=== PATIENT | male | born 1945 | race African-American/Black ===

== ENCOUNTER 2017-07-29 10:32 | Inpatient (IN) ==
[2017-07-29 12:04] LABS: Basophils % 0.3 % (0.0-0.8); Eosinophils % 0.1 % (0.00-10.9); Hematocrit 36.7 VOL% (42.0-52.0); Hemoglobin 12.9 GM/DL (14.0-18.0); Immature Granulocytes % 0.4 %; Immature Granulocytes Absolute 0.03 #; Lymphocytes # 0.8 10*3/uL (1.4-4.0); Mean Corpuscular HGB Conc 35.1 GM/DL (32-36); Mean Corpuscular Hemoglobin 36 PG (27-34); Mean Corpuscular Volume 102.8 FL (87-102); Mean Platelet Volume 9.7 FL (9.6-12.0); Monocytes # 0.5 10*3/uL (0.11-0.8); Monocytes % 6.5 % (1.7-12.7); Neutrophils # 6.4 10*3/uL (1.4-7.4); Neutrophils % 82.7 % (38.7-73.9); Platelet Count 160 T/CUMM (130-400); Red Blood Count 3.57 MC/CUMM (3.8-5.5); White Blood Count 7.7 T/CUMM (4-12)
[2017-07-29 12:17] LABS: INR 0.9; Partial Thromboplastin Time 25.1 SECS (0-40)
[2017-07-29 12:21] LABS: Apearance,Urine CLEAR (Clear); Bilirubin,Urine Negative (Negative); Blood, Urine Small mg/dL (Negative); Glucose,Urine (UA) Negative (Negative); Ketones,Urine 80 mg/dL (Negative); Mucus,Urine Occasional /LPF (Occasional); Nitrite,Urine Negative (Negative); Protein,Urine 30 MG/DL; RBC,Urine <1 /HPF (0-4); Squamous Epithelial Cell,Urine Occasional /HPF (0-10); Urine Color Yellow (Yellow); Urine Specific Gravity 1.019 (1.001-1.035); WBC,Urine <1 /HPF (0-6)
[2017-07-29 12:25] LABS: Barbiturates Screen,Urine Negative (Negative); Benzodiazepines Screen,Urine Negative (Negative); Cannabinoid Screen,Urine Negative (Negative); Opiate Screen,Urine Negative (Negative); Phencyclidine Screen,Urine Negative (Negative)
[2017-07-29 12:28] LABS: Alanine Aminotransferase 75 U/L (16-61); Albumin 4.1 G/DL (3.4-5.0); Alkaline Phosphatase 96 U/L (45-117); Aspartate Amino Transferase 239 U/L (0-37); Blood Urea Nitrogen 10 MG/DL (7-18); Calcium 9.1 MG/DL (8.5-10.1); Glucose 86 MG/DL (74-106); Osmolality,Calculated 274.5 MOS/KG (273-304); Potassium 2.8 MMOL/L (3.5-5.1); Sodium 139 MMOL/L (136-145); Total Protein 7.7 G/DL (6.4-8.3); Troponin I Only < 0.015 NG/ML (0.00-0.045)
[2017-07-29] MEDS ORDERED: POTASSIUM BICARB EFFERVESCENT 25 MEQ TABLET PO ONE ×2 (12:36→12:42)
[2017-07-29] MEDS ORDERED: ACETAMINOPHEN 325 MG TABLET PO PRN (15:11)
[2017-07-29] MEDS ORDERED: ONDANSETRON 4 MG/2 ML VIAL IV PRN (15:11)
[2017-07-29] MEDS ORDERED: POTASSIUM CHLORIDE 20 MEQ TABLET PO PRN (15:21)
[2017-07-29] MEDS ORDERED: LORazepam 2 MG/1 ML VIAL IV PRN (15:28)
[2017-07-29] MEDS ORDERED: THIAMINE INJ 100 MG, FOLIC ACID INJ 1 MG, MULTIVITAMIN INJ 10 ML in SODIUM CHLORIDE 0.9... IV SCH (15:30)
[2017-07-29] MEDS: NICOTINE 14 MG/24 HR PATCH TRANSDERM SCH (17:54)
[2017-07-29] MEDS: ASPIRIN EC 325 MG TABLET PO SCH (17:54)
[2017-07-29] MEDS ORDERED: hydrALAZINE 20 MG/1 ML VIAL IV PRN (18:33)
[2017-07-29] MEDS: 1: THIAMINE INJ 100 MG, MULTIVITAMIN INJ 10 ML, FOLIC ACID INJ 1 MG in SODIUM CHLORIDE 0 IV SCH (18:53)
[2017-07-29] MEDS: chlordiazePOXIDE 10 MG CAPSULE PO SCH (20:31)
[2017-07-29] MEDS ORDERED: ENOXAPARIN 40 MG/0.4 ML SYRINGE SUBCUT SCH (21:00)
[2017-07-29] MEDS ORDERED: ATORVASTATIN 40 MG TABLET PO SCH (21:00)
[2017-07-30] MEDS: 1: THIAMINE INJ 100 MG, MULTIVITAMIN INJ 10 ML, FOLIC ACID INJ 1 MG in SODIUM CHLORIDE 0 IV SCH (04:22)
[2017-07-30 06:08] LABS: Risk Ratio 3.01; VLDL CHOLESTEROL 17.8 MG/DL
[2017-07-30 06:09] LABS: Calcium 8.3 MG/DL (8.5-10.1); Osmolality,Calculated 278.3 MOS/KG (273-304); Potassium 2.9 MMOL/L (3.5-5.1)
[2017-07-30] MEDS ORDERED: POTASSIUM CHLORIDE 10 MEQ TABLET PO ONE (07:51)
[2017-07-30] MEDS: NICOTINE 14 MG/24 HR PATCH TRANSDERM SCH (08:25)
[2017-07-30] MEDS: ASPIRIN EC 325 MG TABLET PO SCH (08:25)
[2017-07-30] MEDS: chlordiazePOXIDE 10 MG CAPSULE PO SCH ×2 (08:27→15:09)
[2017-07-30] MEDS ORDERED: amLODIPine 5 MG TABLET PO SCH ×2 (09:00)
[2017-07-30] MEDS ORDERED: MAGNESIUM OXIDE 400 MG TABLET PO ONE (10:14)
[2017-07-30] MEDS ORDERED: MAGNESIUM SULF RIDER 2 GM in PREMIX 1 EACH IV ONE (10:14)
[2017-07-30 11:51] VITALS: BP 129/87
[2017-07-30] MEDS ORDERED: POTASSIUM CHLORIDE 20 MEQ TABLET PO ONE (14:00)
[2017-07-30] MEDS ORDERED: MAGNESIUM OXIDE 400 MG TABLET PO SCH (21:00)
== END 2017-07-30 15:20 | disposition home or self-care (01) | DRG 641 ==
LOC: N.ED 10:32 → N.EDINP 13:32 → N.4E 17:45
PROVIDERS: ADMIT Family Medicine; ATTEND Family Medicine

== ENCOUNTER 2018-02-27 10:41 | Inpatient (IN) ==
[2018-02-27] MEDS ORDERED: SODIUM CHLORIDE 0.9% 1,000 ML IV STA ×2 (10:58→13:12)
[2018-02-27] MEDS ORDERED: ONDANSETRON 4 MG/2 ML VIAL IV STA (10:58)
[2018-02-27 12:39] LABS: Basophils % 0.1 % (0.0-0.8); Eosinophils % 0.1 % (0.00-10.9); Hematocrit 35.6 VOL% (42.0-52.0); Hemoglobin 12.1 GM/DL (14.0-18.0); Immature Granulocytes % 0.5 %; Immature Granulocytes Absolute 0.06 #; Lymphocytes # 0.2 10*3/uL (1.4-4.0); Lymphocytes % 1.7 % (21.2-54.2); Mean Corpuscular Hemoglobin 34 PG (27-34); Mean Corpuscular Volume 100.6 FL (87-102); Mean Platelet Volume 9.3 FL (9.6-12.0); Monocytes # 0.9 10*3/uL (0.11-0.8); Monocytes % 7.6 % (1.7-12.7); Neutrophils # 11.2 10*3/uL (1.4-7.4); Platelet Count 214 T/CUMM (130-400); Red Blood Count 3.54 MC/CUMM (3.8-5.5); Red Cell Distribution Width 12.9 % (9.3-17.3); White Blood Count 12.4 T/CUMM (4-12)
[2018-02-27 13:03] LABS: Alanine Aminotransferase 29 U/L (16-61); Albumin 3.4 G/DL (3.4-5.0); Alkaline Phosphatase 126 U/L (45-117); Aspartate Amino Transferase 72 U/L (0-37); Blood Urea Nitrogen 20 MG/DL (7-18); Calcium 7.5 MG/DL (8.5-10.1); Glucose 145 MG/DL (74-106); Potassium 3.2 MMOL/L (3.5-5.1); Sodium 136 MMOL/L (136-145); Total Protein 6.5 G/DL (6.4-8.3)
[2018-02-27 13:05] LABS: Lactic Acid 4.9 MMOL/L (0.4-2.0)
[2018-02-27] MEDS ORDERED: NICOTINE 21 MG/24 HR PATCH TRANSDERM PRN (13:27)
[2018-02-27] MEDS ORDERED: MORPHINE 4 MG/1 ML VIAL IV PRN (13:27)
[2018-02-27] MEDS ORDERED: ONDANSETRON 4 MG/2 ML VIAL IV PRN (13:27)
[2018-02-27] MEDS ORDERED: ACETAMINOPHEN 500 MG TABLET PO PRN (13:27)
[2018-02-27] MEDS ORDERED: GLUCAGON 1 MG VIAL IM PRN (13:34)
[2018-02-27 13:36] LABS: Lymphocytes 2 % (20-55); Platelet Estimate Normal; Segmented Neutrophils 92 % (50-85); Total Cells Counted 100
[2018-02-27 13:37] LABS: Anisocytosis 1+; Macrocytosis 1+
[2018-02-27] MEDS ORDERED: LORazepam 2 MG/1 ML VIAL IV PRN (13:37)
[2018-02-27 13:38] LABS: Ovalocytes Few; Poikilocytosis 1+
[2018-02-27 13:39] LABS: Tear Drop Cells Few
[2018-02-27 14:17] LABS: ABG Base Excess -4.8 MMOL/L (-2.5-2.5); ABG HCO3 20.5 MMOL/L (20-26); ABG Oxygen Saturation 97.1 % (95-100); ABG PCO2 28.7 MM HG (35-48); ABG PH 7.418 (7.35-7.45); ABG PO2 95.5 MM HG (80-95); ABG TCO2 16.3 MMOL/L (23-27)
[2018-02-27 15:22] LABS: Apearance,Urine CLEAR (Clear); Bilirubin,Urine Negative (Negative); Blood, Urine Moderate mg/dL (Negative); Glucose,Urine (UA) 50 mg/dL (Negative); Hyaline Casts,Urine 16 /LPF (0-3); Ketones,Urine 80 mg/dL (Negative); Nitrite,Urine Negative (Negative); Protein,Urine 30 MG/DL; RBC,Urine 1 /HPF (0-4); Squamous Epithelial Cell,Urine Occasional /HPF (0-10); Urine Color Yellow (Yellow); Urine Specific Gravity 1.011 (1.001-1.035); WBC,Urine 2 /HPF (0-6)
[2018-02-27] MEDS: SODIUM CHLORIDE 0.9% 1,000 ML IV SCH ×3 (15:51→20:51)
[2018-02-27 15:58] LABS: PT Patient Result 10.7 SECS
[2018-02-27] MEDS: POTASSIUM CHLORIDE RIDER 10 MEQ in PREMIX 1 EACH IV SCH ×4 (15:59→19:07)
[2018-02-27] MEDS: CLORAZEPATE 7.5 MG TABLET PO SCH ×2 (15:59→23:20)
[2018-02-27] MEDS: MEROPENEM 500 MG in SODIUM CHLORIDE 0.9% 100 ML IV SCH (16:02)
[2018-02-27 16:22] LABS: Lactic Acid 2.3 MMOL/L (0.4-2.0)
[2018-02-27] MEDS ORDERED: THIAMINE INJ 100 MG, FOLIC ACID INJ 1 MG, MULTIVITAMIN INJ 10 ML in SODIUM CHLORIDE 0.9... IV SCH (17:00)
[2018-02-27 17:47] LABS: Barbiturates Screen,Urine Negative (Negative); Benzodiazepines Screen,Urine Negative (Negative); Cannabinoid Screen,Urine Negative (Negative); Opiate Screen,Urine Negative (Negative); Phencyclidine Screen,Urine Negative (Negative)
[2018-02-27] MEDS: INSULIN LISPRO 100 UNIT/ML SUBCUT SCH ×2 (18:05→23:43)
[2018-02-27 18:37] LABS: Apearance,Urine Slightly Hazy (Clear); Bilirubin,Urine Negative (Negative); Blood, Urine Large mg/dL (Negative); Glucose,Urine (UA) Negative (Negative); Hyaline Casts,Urine 16 /LPF (0-3); Ketones,Urine 80 mg/dL (Negative); Mucus,Urine Occasional /LPF (Occasional); Nitrite,Urine Negative (Negative); Protein,Urine 30 MG/DL; RBC,Urine 2 /HPF (0-4); Squamous Epithelial Cell,Urine Occasional /HPF (0-10); Urine Color Yellow (Yellow); Urine Urobilinogen < 2.0 EU/DL (0.2-1.0); WBC,Urine 1 /HPF (0-6)
[2018-02-27] MEDS: ATORVASTATIN 40 MG TABLET PO SCH (21:49)
[2018-02-27] MEDS: MAGNESIUM OXIDE 400 MG TABLET PO SCH (21:49)
[2018-02-27] MEDS: ENOXAPARIN 40 MG/0.4 ML SYRINGE SUBCUT SCH (21:49)
[2018-02-27] MEDS: DEXTROSE 50% 25 GM/50 ML VIAL IV PRN (23:39)
[2018-02-28] MEDS: MEROPENEM 500 MG in SODIUM CHLORIDE 0.9% 100 ML IV SCH ×2 (03:43→15:13)
[2018-02-28 05:13] LABS: Basophils % 0.1 % (0.0-0.8); Eosinophils % 0.1 % (0.00-10.9); Hematocrit 33.9 VOL% (42.0-52.0); Hemoglobin 11.5 GM/DL (14.0-18.0); Immature Granulocytes % 0.3 %; Immature Granulocytes Absolute 0.02 #; Lymphocytes # 0.4 10*3/uL (1.4-4.0); Lymphocytes % 5.4 % (21.2-54.2); Mean Corpuscular HGB Conc 33.9 GM/DL (32-36); Mean Corpuscular Hemoglobin 34 PG (27-34); Mean Corpuscular Volume 101.5 FL (87-102); Mean Platelet Volume 9.2 FL (9.6-12.0); Monocytes # 0.5 10*3/uL (0.11-0.8); Monocytes % 6.3 % (1.7-12.7); Neutrophils # 6.7 10*3/uL (1.4-7.4); Neutrophils % 87.8 % (38.7-73.9); Platelet Count 125 T/CUMM (130-400); Red Blood Count 3.34 MC/CUMM (3.8-5.5); White Blood Count 7.6 T/CUMM (4-12)
[2018-02-28 05:32] LABS: Albumin 2.8 G/DL (3.4-5.0); Bilirubin,Total 1.5 MG/DL (0.2-1.0); Calcium 7.1 MG/DL (8.5-10.1); Osmolality,Calculated 273.8 MOS/KG (273-304); Total Protein 5.8 G/DL (6.4-8.3)
[2018-02-28] MEDS: DEXTROSE 50% 25 GM/50 ML VIAL IV PRN (05:45)
[2018-02-28] MEDS: INSULIN LISPRO 100 UNIT/ML SUBCUT SCH ×4 (06:00→23:04)
[2018-02-28] MEDS: CLORAZEPATE 7.5 MG TABLET PO SCH ×3 (06:01→23:10)
[2018-02-28] MEDS ORDERED: MAGNESIUM SULF RIDER 2 GM in PREMIX 1 EACH IV PRN (08:41)
[2018-02-28] MEDS ORDERED: MAGNESIUM SULF RIDER 4 GM in PREMIX 1 EACH IV PRN (08:41)
[2018-02-28] MEDS: MAGNESIUM OXIDE 400 MG TABLET PO SCH ×2 (08:44→20:59)
[2018-02-28] MEDS: POTASSIUM CHLORIDE 20 MEQ TABLET PO SCH (08:44)
[2018-02-28] MEDS: ASPIRIN EC 81 MG TABLET PO SCH (08:45)
[2018-02-28] MEDS: amLODIPine 5 MG TABLET PO SCH (08:45)
[2018-02-28] MEDS: SODIUM CHLORIDE 0.9% 1,000 ML IV SCH (08:55)
[2018-02-28] MEDS ORDERED: POTASSIUM CHLORIDE 20 MEQ TABLET PO ONE (13:30)
[2018-02-28] MEDS: 1: SODIUM CHLORIDE 0.9% 1,000 ML 2: THIAMINE INJ 100 MG, FOLIC ACID INJ 1 MG, MULTIVITA IV SCH ×3 (17:13→22:11)
[2018-02-28] MEDS: POTASSIUM CHLORIDE RIDER 10 MEQ in PREMIX 1 EACH IV PRN ×3 (20:59→23:11)
[2018-02-28] MEDS: ATORVASTATIN 40 MG TABLET PO SCH (20:59)
[2018-02-28] MEDS: ENOXAPARIN 40 MG/0.4 ML SYRINGE SUBCUT SCH (20:59)
[2018-03-01] MEDS: POTASSIUM CHLORIDE RIDER 10 MEQ in PREMIX 1 EACH IV PRN ×2 (00:15→01:17)
[2018-03-01] MEDS: MEROPENEM 500 MG in SODIUM CHLORIDE 0.9% 100 ML IV SCH (03:36)
[2018-03-01] MEDS: 1: SODIUM CHLORIDE 0.9% 1,000 ML 2: THIAMINE INJ 100 MG, FOLIC ACID INJ 1 MG, MULTIVITA IV SCH ×2 (04:03→04:04)
[2018-03-01 04:49] LABS: Eosinophils % 0.5 % (0.00-10.9); Hematocrit 30.4 VOL% (42.0-52.0); Hemoglobin 10.5 GM/DL (14.0-18.0); Immature Granulocytes % 0.2 %; Immature Granulocytes Absolute 0.01 #; Lymphocytes # 0.5 10*3/uL (1.4-4.0); Lymphocytes % 9.1 % (21.2-54.2); Mean Corpuscular HGB Conc 34.5 GM/DL (32-36); Mean Corpuscular Hemoglobin 34 PG (27-34); Mean Corpuscular Volume 99.3 FL (87-102); Mean Platelet Volume 9.4 FL (9.6-12.0); Monocytes # 0.4 10*3/uL (0.11-0.8); Monocytes % 7.4 % (1.7-12.7); Neutrophils # 4.7 10*3/uL (1.4-7.4); Neutrophils % 82.8 % (38.7-73.9); Platelet Count 103 T/CUMM (130-400); Red Blood Count 3.06 MC/CUMM (3.8-5.5); Red Cell Distribution Width 12.9 % (9.3-17.3); White Blood Count 5.7 T/CUMM (4-12)
[2018-03-01 05:21] LABS: Albumin 2.3 G/DL (3.4-5.0); Bilirubin,Total 1.7 MG/DL (0.2-1.0); Calcium 6.3 MG/DL (8.5-10.1); Osmolality,Calculated 282.1 MOS/KG (273-304); Total Protein 4.9 G/DL (6.4-8.3)
[2018-03-01] MEDS: CLORAZEPATE 7.5 MG TABLET PO SCH ×2 (06:25→15:41)
[2018-03-01] MEDS: INSULIN LISPRO 100 UNIT/ML SUBCUT SCH ×2 (06:33→12:35)
[2018-03-01] MEDS: ASPIRIN EC 81 MG TABLET PO SCH (08:23)
[2018-03-01] MEDS: POTASSIUM CHLORIDE 20 MEQ TABLET PO SCH ×4 (08:23→16:10)
[2018-03-01] MEDS: MAGNESIUM OXIDE 400 MG TABLET PO SCH (08:23)
[2018-03-01] MEDS: amLODIPine 5 MG TABLET PO SCH (08:24)
[2018-03-01 12:04] LABS: Hepatitis A Ab IgM Quant 0.02 Index; Hepatitis A Ab IgM Result Negative (Negative); Hepatitis B Core IgM Quant < 0.05 Index; Hepatitis B Core IgM Result Negative (Negative); Hepatitis B Surface Ag Quant < 0.10 Index; Hepatitis B Surface Ag Result Negative (Negative); Hepatitis C Virus Ab Quant 0.11 Index; Hepatitis C Virus Ab Result Negative (Negative)
[2018-03-01] MEDS ORDERED: MEROPENEM 1,000 MG in SODIUM CHLORIDE 0.9% 100 ML IV SCH (14:00)
[2018-03-01 16:17] VITALS: BP 129/91
== END 2018-03-01 17:39 | disposition home or self-care (01) | DRG 872 ==
LOC: EDBD → EDUNIT# → N.ED 10:41 → N.EDINP 13:28 → N.3E 15:00
PROVIDERS: ADMIT Internal Medicine; ATTEND Internal Medicine